=== PATIENT | male | born 1945 | race Caucasian/White ===

== ENCOUNTER 2019-07-18 20:00 | Emergency (ER) | payer OTHER ==
[~2019-07-18] VITALS: Ht 170.2 cm; Wt 96.3 kg
[2019-07-18] MEDS ORDERED: SODIUM CHLORIDE 0.9% 1,000 ML IV ONE (20:07)
[2019-07-18 21:07] LABS: BASOPHILS % 0.3 % (0.0-2.0); EOSINOPHILS % 1.5 % (0.0-5.0); HEMATOCRIT. 42.6 % (42.0-52.0); HEMOGLOBIN. 14.3 g/dL (14.0-18.0); LYMPHOCYTES % 32.2 % (20.0-50.0); MEAN CORPUSCULAR HEMOGLOBIN 28.9 pg (28.0-32.0); MEAN CORPUSCULAR VOLUME 86.3 fL (80.0-94.0); MEAN PLATELET VOLUME 9.6 fl (7.4-10.4); MONOCYTES % 7.3 % (2.0-8.0); NEUTROPHILS % 58.7 % (40.0-76.0); PLATELET 116 x1000/uL (130-400); RED BLOOD CELL COUNT 4.93 mill/uL (4.7-6.1); RED CELL DISTRIBUTION WIDTH 14.1 % (11.6-14.6)
[2019-07-18 21:12] LABS: PROTHROMBIN TIME 10.6 sec (9.6-11.0)
[2019-07-18 21:13] LABS: CHLORIDE 106 mEq/L (98-107)
[2019-07-18] MEDS ORDERED: ALTEPLASE 100MG/VIAL IV ONE (21:15)
[2019-07-18] MEDS ORDERED: ALTEPLASE IV ONE (21:15)
[2019-07-18] MEDS ORDERED: CONTAINER EMPTY IV ONE (21:15)
[2019-07-18 21:18] LABS: ETHANOL BLOOD < 10 mg/dL
[2019-07-18 21:22] LABS: LDL CHOLESTEROL 93 mg/dL (5-100)
[2019-07-18 21:23] LABS: CREATINE KINASE 75 IU/L (39-308)
[2019-07-18] MEDS ORDERED: LABETALOL 5MG/ML SYR 20 MG/4 ML SYRINGE IV ONE (21:30)
[2019-07-18] MEDS ORDERED: *NO ASPIRIN X 24 HOURS XX SCH (21:45)
[2019-07-18 22:21] VITALS: BP 163/92
[2019-07-18] MEDS ORDERED: IOHEXOL-350 100 ML BOTTLE ONE (23:08)
== END 2019-07-18 23:10 | disposition short-term general hospital (02) ==
LOC: ER 20:00 → CANBEDREQ 07-19 00:13
DX: I63.9 Cerebral infarction, unspecified (principal); I16.1 Hypertensive emergency; R55 Syncope and collapse; I10 Essential (primary) hypertension; Z92.82 Status post administration of tPA (rtPA) in a different facility within the last 24 hours prior to admission to current facility
CPT/HCPCS: 36415; 37195; 70450; 70496; 70498; 71045; 80053; 80320; 82550; 82962; 83690; 83721; 83880; 84484; 85025; 85610; 93005; 96361; 96374; 99291; J2997; J3490; J7030; Q9967; J7060; G0480